=== PATIENT | male | born 1960 | race Caucasian/White ===

== ENCOUNTER 2017-03-14 08:33 | Emergency (ER) | payer OTHER ==
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
[2017-03-14 08:52] VITALS: RESP 16; TEMP 97.7
[2017-03-14] MEDS ORDERED: HYDROmorphONE/DILAUDID 1 MG/ML INJ IVP ONE (09:07)
[2017-03-14] MEDS ORDERED: HYDROmorphONE/DILAUDID 1 MG/ML INJ ONE (09:16)
[2017-03-14 09:56] VITALS: BP 133/82; PULSE 69; O2SAT 95
== END 2017-03-14 09:56 | disposition home or self-care (01) ==
LOC: EDUNIT#
DX: S49.92XA Unspecified injury of left shoulder and upper arm, initial encounter (principal); V49.69XA Unspecified car occupant injured in collision with other motor vehicles in traffic accident, initial encounter; Y92.410 Unspecified street and highway as the place of occurrence of the external cause
CPT/HCPCS: 96374; J1170